=== PATIENT | female | born 1985 | race Hispanic/Latino ===

== ENCOUNTER 2016-10-22 09:58 | Day surgery (SDC) | payer OTHER ==
[~2016-10-22] VITALS: Ht 149.9 cm; Wt 66.0 kg
[~2016-10-22 09:58] MED LIST: DICY10CA56 PO; Sodium Chloride LOK Flush 10 mL Syringe IV PRN; fentaNYL-PF 50 mCg/mL 2 mL Inj IVPUSH PRN
[2016-10-22] MEDS ORDERED: THYR65TA4 PO (10:54)
[2016-10-22 10:55] VITALS: BP 104/63; PULSE 64; RESP 16; O2SAT 100
[2016-10-22] MEDS ORDERED: 0.9% Sodium Chloride 1,000 ML IV ONE (11:35)
[2016-10-22 11:45] VITALS: BP 95/60; PULSE 62; RESP 16; O2SAT 98
[2016-10-22 11:55] VITALS: BP 92/53; PULSE 63; RESP 16; O2SAT 99
[2016-10-22 12:05] VITALS: BP 95/57; PULSE 65; RESP 16; O2SAT 100
[2016-10-22 12:15] VITALS: BP 98/62; PULSE 61; RESP 16; O2SAT 100
--- NOTE | 2016-10-22 13:15 | ENDO ---
[address] [address] ENDOSCOPY PROCEDURE PATIENT: EMIL NUNEZ : 1985 MR#: [id number] ADMIT: 10/22/2016 JOB ID: [id number] DATE: 10/22/2016 TYPE OF OPERATION: 1. Esophagogastroduodenoscopy with biopsy. 2. Colonoscopy with biopsy. PREOPERATIVE DIAGNOSIS(ES): diarrrhea, gerd, luq pain POSTOPERATIVE DIAGNOSIS(ES): 1. Normal upper endoscopy status post biopsies. 2. Small internal hemorrhoids. ANESTHESIA: 1. Fentanyl 100 mcg. 2. Versed 5 mg IV administered. COMPLICATIONS: None. BLOOD LOSS: Minimal. DESCRIPTION OF PROCEDURE: After the risks and benefits had been explained to the patient, informed consent was obtained. After anesthesia was administered, upper endoscope was then inserted into the mouth, intubating the esophagus, stomach, second portion of the duodenum. Mucosa carefully examined. After the procedure was done, the scope was withdrawn and the procedure terminated. Colonoscope was then inserted into the rectum to the terminal ileum. Mucosa carefully examined. The prep of the patient was excellent. After the procedure was done, the scope was withdrawn and the procedure terminated. FINDINGS: Upon inspection of the esophagus, the esophagus was normal. There was no masses, ulcerations or lesions. Z line located 35 cm from the incisors. Upon entering the stomach, the stomach was also normal without masses, ulcers or lesions. Retroflexion is normal. Duodenum, first and second portions were normal. Biopsies taken of the duodenum, antrum, body and distal esophagus. Upon inspection of the anus, no masses, hemorrhoids, ulcers or fistula are seen. Throughout the entire examination, there were no polyps, masses or lesions. Biopsies taken of terminal ileum and random colon. Retroflexion revealed small hemorrhoids. FINDINGS: Internal hemorrhoids. RECOMMENDATIONS: 1. Await pathology results. 2. Followup in GI clinic as needed. KEELEY
--- NOTE | 2016-10-25 16:27 | PATH ---
SURGICAL PATHOLOGY Attending Physician:Chance Higuera MD CASE STATUS: Signed Out PATIENT NAME: EMIL NUNEZ PID: [id number] : 1985 DATE COLLECTED:10/22/2016 20:16 SPECIMEN: 1: Duodenum, Biopsy 2: Stomach, Antrum, Biopsy 3: Gastric, Biopsy 4: Esophagus, Biopsy 5: Ileum, Biopsy 6: Colon, Biopsy CLINICAL HISTORY: 1). DUODENUM BIOPSY 2). GASTRIC ANTRUM BIOPSY, RULE OUT H.PYLORI 3). GASTRIC BODY BIOPSY 4). DISTAL ESOPHAGUS BIOPSY 5). TERMINAL ILEUM BIOPSY 6). RANDOM COLON BIOPSY FINAL DIAGNOSIS: 1. Duodenum, Biopsy: Portions of duodenal mucosa with patchy, increased intraepithelial lymphocytosis, non-specific. 2. Gastric Antrum, Biopsy: Portion of gastric antral mucosa with mild chronic gastritis. No definitive H. pylori organisms identified by H&E stain. Immunohistochemistry studies pending; results will be reported as an addendum. Negative for intestinal metaplasia, dysplasia, and malignancy. 3. Gastric Body, Biopsy: Portions of gastric body-type mucosa with mild chronic gastritis. No definite H. pylori organisms identified by H&E stain. Immunohistochemistry studies pending; results will be reported as an addendum. Negative for intestinal metaplasia, dysplasia, and malignancy. 4. Distal Esophagus, Biopsy: Squamocolumnar junctional mucosa with no diagnostic abnormality. Negative for intestinal metaplasia, dysplasia, and malignancy. Very scant columnar epithelium is present for evaluation. 5. Terminal Ileum Biopsy: Superficial portions of small bowel mucosa with no diagnostic abnormality. Negative for dysplasia and malignancy. 6. Random Colon Biopsies: Portion of adenomatous mucosa x 1, consistent with possible tubular adenoma; negative for high-grade dysplasia. Superficial portions of colorectal mucosa with a well-preserved crypt architecture and occasional prominent lymphoid aggregates. Negative for active inflammation, granulomas, and malignancy. ICD10: K29.7 GROSS DESCRIPTION: The specimen is received in six formalin filled containers labeled with the patient's name. 1). The specimen is sublabeled "duodenal" and consists of 2 portions of tissue which aggregate to 0.3-0.3 x 0.2 CM. The specimen is entirely submitted in cassette 1A. 2). The specimen is sublabeled "gastric antrum" and consists of a 0.2 x 0.2 x 0.2 CM portion of tissue which is entirely submitted in cassette 2A. 3). The specimen is sublabeled "gastric body" and consists of 2 portions of tissue which aggregate to 0.3 x 0.3 x 0.2 CM. The specimen is entirely submitted in cassettes 3A. 4). The specimen is sublabeled "distal esophagus" and consists of a 0.3 x 0.2 x 0.1 CM portion of tissue which is entirely submitted in cassette 4A. 5). The specimen is sublabeled "terminal ileum" and consists of 2 portions of tissue which aggregate to 0.3 x 0.3 x 0.2 CM. The specimen is entirely submitted in cassette 5A. 6). The specimen is sublabeled "random colon" and consists of multiple portions of tissue which aggregate to 0.4 x 0.4 x 0.3 CM. The specimen is entirely submitted in cassette 6A. 10/22/2016 [facility] ICD-9 CODES: CPT CODES: 1: 87876 2: 13677, 89861 3: 69203, 51965 4: 12832 5: 89690 6: 98127 PROCEDURE/ADDENDA: Addendum SPI Addendum Diagnosis 2. Gastric Antrum, Biopsy: Negative for H. pylori organisms by immunohistochemistry studies. 3. Gastric Biopsy: Negative for H. pylori organisms by immunohistochemistry studies. * This test was developed and its performance characteristics determined by [employer]. It has not been cleared or approved by the U.[place]. Food and Drug Administration. The FDA has determined that such clearance or approval is not necessary. This test is used for clinical purposes. It should not be regarded as investigational or for research. Addendum Comment {Not Entered} Electronically Signed Out Marcelle Laird MD Electronically Signed Out By Marcelle Laird MD [facility] Pathology Marcelle Laird MD [facility], [place] [address] Technical component performed at [facility], [facility] [address], [place], [address]
== END 2016-10-22 23:59 | disposition home or self-care (01) ==
LOC: END 09:58
PROVIDERS: ATTEND Internal Medicine Gastroenterology
DX: R19.7 Diarrhea, unspecified (principal); K64.8 Other hemorrhoids; K29.50 Unspecified chronic gastritis without bleeding; K21.9 Gastro-esophageal reflux disease without esophagitis; D72.820 Lymphocytosis (symptomatic); K59.00 Constipation, unspecified
CPT/HCPCS: 43239; 45380; G0500; J2250; J3010; J7030